=== PATIENT | female | born 1990 | race Caucasian/White ===

== ENCOUNTER → 2021-08-01 | Outpatient (CLI) | payer BC | LOC: DIA.ED 08:18 | DX: O24.419 Gestational diabetes mellitus in pregnancy, unspecified control (principal) | CPT/HCPCS: G0108 ==

== ENCOUNTER → 2021-09-10 | Outpatient (CLI) | payer BC | LOC: DIA.ED 02:06 | DX: O24.419 Gestational diabetes mellitus in pregnancy, unspecified control (principal) | CPT/HCPCS: G0108 ==

== ENCOUNTER 2021-09-24 09:09 | Inpatient (IN) | payer BC ==
[~2021-09-24] VITALS: Ht 167.6 cm; Wt 93.6 kg
[2021-09-24] VITALS (37 sets, daily range): BP systolic 99–131; BP diastolic 49–77; PULSE 58–107; TEMP 98–98.5
--- NOTE | 2021-09-24 09:15 | NUR ---
0915-G1L0 39.[address] Bonilla's to LDR 2 via wheelchair. Patient breathing through contraction upon arrival to unit. Easily able to get up to bathroom and change into gown. Asssited to bed and placed on EFM. Assessment complete. Patient reports contractions since 0200 that are getting closer together and more painful. Denies leaking of fluid or vaginal bleeding. SVE by KIESHA Mckeon /-2. 0931-Dr. Lopez updated on patient and orders to labor check patient obtained.
--- NOTE | 2021-09-24 11:11 | NUR ---
1018-SVE by LindaRN no change in the last hour. Updated Dr. Lopez see MD notification. 1022-Patient off EFM to ambulate.
--- NOTE | 2021-09-24 12:00 | NUR ---
1200-50mg PO benadryl given per MD orders, See EMAR 1215-INT to Right hand per therapeutic rest protocol and MD orders. 1238-15mg Morphine IM given in right buttockk per MD orders, see EMAR.
--- NOTE | 2021-09-24 17:35 | NUR ---
1734-Patient awake, SVE by Max Dumont,RN /-2 buldging bag. 1739-Dr. Lopez updated, orders to admit patient recieved. IVF bolus started. Last snowden. AMOR Clancy notified. Consents reviewed and signed.
--- NOTE | 2021-09-24 18:10 | NUR ---
181-Patient sitting upright for epidural placement. AMOR Clancy to patient room. 1817-SS administered by AMOR Clancy. Patient tolerated procedure well. Repositioned WL. Kanchan RN to patient room shift report complete at bedside.
[2021-09-24 18:20] LABS: BASO # 0.1 K/mm3 (0.0-0.2); BASO % 0.4 % (0.0-2.0); EOS % 0.1 % (0.0-4.0); GRAN # 11.7 K/mm3 (1.4-6.5); GRAN % 86.1 % (42.2-75.2); HEMATOCRIT 38.3 % (37.0-47.0); HEMOGLOBIN 12.7 g/dl (12.5-16.0); LYMPH # 1.1 K/mm3 (1.2-3.4); MEAN CELL VOLUME 86 fl (80.0-100.0); MEAN CORPUSCULAR HEMOGLOBIN 29 pg (27-31); MEAN CORPUSCULAR HGB CONC 33 g/dl (33.0-37.0); MEAN PLATELET VOLUME 12.6 fl (7.4-10.4); MONO # 0.6 K/mm3 (0.1-0.6); MONO % 4.7 % (1.7-9.3); PLATELET COUNT 250 K/mm3 (130-400); RED BLOOD COUNT 4.45 M/mm3 (4.10-5.30); REDCELL DISTRIBUTION WIDTH-CV 13.9 % (11.5-14.5)
--- NOTE | 2021-09-24 18:50 | NUR ---
Dr. Lopez at bedside. Artificial rupture of membranes at this time. Small amount of lightly bloodstained fluid out. SVE per Dr. Lopez. Fontaine catheter placed at this time to dependent drainage. Clear, yellow urine out. Secured to leg with statlock. Pt positioned to left lateral with pillow support. Plan of care reviewed with patient and spouse. Call light within reach.
[2021-09-25] VITALS (44 sets, daily range): BP systolic 90–142; BP diastolic 50–87; PULSE 63–108; TEMP 98.3–99
--- NOTE | 2021-09-25 03:50 | NUR ---
Pt checking blood sugar with own glucometer. BS 82.
--- NOTE | 2021-09-25 04:45 | NUR ---
SVE complete/0. Pushing techniques reviewed with patient, verbalized understanding. Pt positioned in footplates. Initial push at 0455. 0620 - Bedside shift report with Ivania Blanton RN.
--- NOTE | 2021-09-25 05:30 | NUR ---
SPOT CHECK ACCUCHECK PER HOME DEVICE AT THIS TIME, BLOOD SUGAR:83
--- NOTE | 2021-09-25 08:28 | NUR ---
0630: PT PUSHING SINCE 0455. BEDSIDE REPORT FROM SHAYLEE POP AT THIS TIME. THIS NURSE ASSUMES CARE AND CONTINUES COACHING PT THROUGH PUSHING EFFORTS. 0828: OF VIABLE MALE PER . PLACED ON MATERNAL ABDOMEN, CARE OF ASSUMED BY KIESHA DENNY. CORD CLAMPED X2 AND CUT BY PER PARENT REQUEST. 0835: OF PLACENTA PER AT THIS TIME. PITOCIN INFUSING PER PROTOCOL. MODERATE LOCHIA WITH CLOTS NOTED. FUNDAL MASSAGE BY THIS RN PER VERBAL INSTRUCTION PER . VORB FOR IM METHERGINE AT THIS TIME. 0843: IM METHERGIN TO LEFT ANTEROLATERAL THIGH. 0845: REPAIR OF THIRD DEGREE PERINEAL LACERATION AT THIS TIME PER . MODERATE LOCHIA CONTINUES, VORB FOR 800MCG RECTAL CYTOTEC TO BE ADMINISTERED BY FOLLOWING REPAIR. PT'S VITAL SIGNS STABLE AT THIS TIME. EBL 800CC PER FOLLOWING PERINEAL LACERATION REPAIR. BLEEDING CONTROLLED AT THIS TIME. WILL MONITOR CLOSELY. 0850: PT'S VITAL SIGNS STABLE, LOCHIA SCANT, NO CLOTS NOTED. FUNDUS FIRM AT UMBILICUS. WILL CONTINUE PP CARES PER PROTOCOL.
[2021-09-26 02:30] VITALS: BP 113/56; PULSE 80; TEMP 98.1
[2021-09-26 07:25] VITALS: BP 109/58; PULSE 82; TEMP 98
--- NOTE | 2021-09-26 10:21 | NUR ---
Initial visit attempt; Family resting, Assistant Women'S Basketball Coach left card offering congratulations and God's blessings for the of their son and information regarding the availability of spiritual care at [facility].
[2021-09-26 16:10] VITALS: BP 115/64; PULSE 85; TEMP 98
[2021-09-26 20:10] VITALS: BP 99/57; PULSE 66; TEMP 98.1
[2021-09-26 23:00] VITALS: BP 124/67; PULSE 94; TEMP 97.9
[2021-09-27 06:45] VITALS: BP 116/67; PULSE 65; TEMP 97.5
[2021-09-27] MEDS ORDERED: IBU800 M1 PO (08:23)
--- NOTE | 2021-09-27 11:04 | NUR ---
DISCHARGE TEACHING COMPLETED. EDUCATED ON FOLLOW UP APPOINTMENT AND PRESCRIPTION. QUESTIONS INVITED AND ANSWERED.
== END 2021-09-27 11:20 | disposition home or self-care (01) | DRG 768 ==
LOC: LDRO 09:09 → LDR 17:45 → OB 09-25 11:30
PROVIDERS: Obstetrics & Gynecology; ADMIT Student in an Organized Health Care Education/Training Program
PROC: 10E0XZZ Delivery of Products of Conception, External Approach (ICD-10-PCS; principal; 2021-09-24)
PROC: 0DQR0ZZ Repair Anal Sphincter, Open Approach (ICD-10-PCS; 2021-09-24)
DX: O24.420 Gestational diabetes mellitus in childbirth, diet controlled (principal); Z37.0 Single live birth; O99.354 Diseases of the nervous system complicating childbirth; O70.20 Third degree perineal laceration during delivery, unspecified; O72.1 Other immediate postpartum hemorrhage; G43.909 Migraine, unspecified, not intractable, without status migrainosus; O99.62 Diseases of the digestive system complicating childbirth; K21.9 Gastro-esophageal reflux disease without esophagitis; O75.81 Maternal exhaustion complicating labor and delivery; O99.214 Obesity complicating childbirth; Z3A.39 39 weeks gestation of pregnancy
CPT/HCPCS: J2210; J2270; J2400; J2795; J7120

== ENCOUNTER 2023-09-11 06:10 | Observation (INO) | payer OTHER ==
[2023-09-11] VITALS (32 sets, daily range): BP systolic 81–135; BP diastolic 41–81; PULSE 56–94; TEMP 97.7–97.9
[~2023-09-11] VITALS: Ht 167.6 cm; Wt 106.4 kg
[~2023-09-11 06:10] MED LIST: IBU800 M1 PO; PRENATAL; PRILOSEC 20MG20 MG PO; [UNRECOGNIZED DRUG - OTHER] PO
--- NOTE | 2023-09-11 06:20 | NUR ---
0620PT AMBULATORY TO UNIT WITH SPOUSE FOR SCHEDULED INDUCTION. PT CHANGED INTO CLEAN GOWN. PT COMFORTABLE IN BED. 0625THIS RN AT BEDSIDE TO PLACE TOCO AND EFM. EFM TRACING CAT I. PT VITAL SIGNS STABLE. 0635PT STATES SHE FELT LOTS OF POSITIVE MOVEMENT DURING THE NIGHT. PT STATES FEELING THE OCCASIONAL TIGHTENING IN HER BELLY, BUT NOT REGUALR PATTERN OR ANYTHING. PT DENIES LEAKING OF FLUID AND DENIES VAGINAL BLEEDING. 0640THIS RN DISCUSSES POC WITH PT. PT VERBALIZES UNDERSTANDING, AND AGREEMENT. PT STATES SHE HAD AN OB APPOINTMENT YESTERDAY WITH DR. ROJAS. PT STATES THAT DR ROJAS TOLD THE PT TO TELL THE STAFF THAT SHE DOES NOT NEED AN SVE TO START PITOCIN. PT WAS DILATED TO 1 CM YESTERDAY, AND IT WAS A DIFFICULT CHECK. 0650IV STARTED AT THIS TIME. 0715FIRST BAG OF IVF STARTED. PITOCIN STARTED AT 2 MU AT THIS TIME.
[2023-09-11] MEDS ORDERED: LR & Oxytocin 500 ML IV SCH (07:00)
[2023-09-11] MEDS ORDERED: LR 1,000 ML IV SCH (07:00)
[2023-09-11] MEDS ORDERED: FERROUS SU325 MG/TAB PO (07:37)
[2023-09-11] MEDS ORDERED: CLARITIN 1010 MG/TAB PO (07:38)
[2023-09-11 07:42] LABS: BASO % 0.4 % (0.0-2.0); EOS # 0.1 K/mm3 (0.0-0.7); GRAN # 7.6 K/mm3 (1.4-6.5); GRAN % 74.6 % (42.2-75.2); HEMOGLOBIN 11.4 g/dl (12.5-16.0); LYMPH # 1.7 K/mm3 (1.2-3.4); LYMPH % 16.3 % (20.0-51.0); MEAN CELL VOLUME 86 fl (80.0-100.0); MEAN CORPUSCULAR HEMOGLOBIN 28 pg (27-31); MEAN CORPUSCULAR HGB CONC 33 g/dl (33.0-37.0); MONO # 0.7 K/mm3 (0.1-0.6); PLATELET COUNT 303 K/mm3 (130-400); RED BLOOD COUNT 4.07 M/mm3 (4.10-5.30); REDCELL DISTRIBUTION WIDTH-CV 15.3 % (11.5-14.5)
[2023-09-11 07:47] LABS: HEMATOCRIT 35.1 % (37.0-47.0)
[2023-09-11] MEDS ORDERED: Acetaminophen 500 MG TAB PO PRN (09:00)
--- NOTE | 2023-09-11 09:30 | NUR ---
DR ROJAS ON UNIT. DR ROJAS TELLS THIS NURSE THAT THE PT CAN HAVE AN EPIDURAL WHENEVER. DR ROJAS STATES HE WILL BE BACK AROUND LUNCH TIME AND WILL BREAK WATER THEN IF PT HAS AN EPIDURAL. DR ROJAS STATES THAT THE SVE YESTERDAY IN THE OFFICE WAS PRETTY ROUGH, AND SHE WAS 1 CM DILATED, AND CONFIRMED THAT HE WAS OKAY THAT I DID NOT CHECK HER THIS MORNING AND TO CONTINUE WITH CURRENT MANAGEMENT OF INDUCTION. DR ROJAS GAVE VERBAL ORDER TO THIS RN TO GO UP TO 30 MU OF PITOCIN IF THE PATIENTS NEEDS IT.
--- NOTE | 2023-09-11 13:00 | NUR ---
1300-1330PT UP AND WALKING AROUND THE HALLS. WIRELESS TOCO AND EFM ARE PLACED. PT IS ACCOMPANIED BY RN. EFM DIFFICULT TO TRACE WHILE PT IS WALKING. PT AND RN STOP FOR A FEW SECONDS TO CHECK BABY ON THE MONITOR AFTER EACH LAP AROUND THE UNIT. 1330PT BACK IN BED AND PLACED ON BEDSIDE TOCO AND EFM. EFM TRACING CAT I. PT COMFORTABLE IN BED. PT VITAL SIGNS STABLE.
--- NOTE | 2023-09-11 13:55 | NUR ---
THIS RN AND GALO POP ENTER PT'S ROOM AND DICUSS THE PT'S OPTIONS. THE PT IS ALLOWED TO ASK QUESTIONS. GALO POP ANSWERS ALL QUESTIONS. PT VERBALIZES UNDERSTANDING.
--- NOTE | 2023-09-11 16:00 | NUR ---
1600-1615PT WALKING THE HALLS WITH THE WIRELESS TOCO/EFM. EFM DIFFICULT TO TRACE WHILE PT IS WALKING. THIS RN CHECKS IN AND GETS BABY ON MONITOR BEFORE PT CONTINUES. 1615PT RETURNS TO ROOM AND IS SITTING ON THE EDGE OF THE BED. EFM TRACING CAT I. PT VITAL SIGNS STABLE.
--- NOTE | 2023-09-11 17:40 | NUR ---
PITOCIN STOPPED AT THIS TIME BY THIS RN. TORB ORDER TO DISCONTINUE PITOCIN PER DR ROJAS.
--- NOTE | 2023-09-11 17:55 | NUR ---
DR ROJAS AT BEDSIDE TO DISCUSS POC WITH PT. DR ROJAS GIVES PT OPTIONS OF HOW TO CONTINUE. EITHER TRY CYTOTEC TONIGHT, GET AN EPIDURAL AND BREAK WATER, DO A PIT BREAK FOR FOUR HOURS, OR IF THE PT WANTS TO GO HOME AND COME BACK NEXT WEEK. PT STATES SHE DOES NOT WANT A , AND WANTS TO DO THE OPTION THAT WILL LEAST LEAD TO A . DR ROJAS STATES IF SHE STAYS AND TRIES ANY OF THE OPTIONS, THERE IS A HIGH RISK FOR . DR ROJAS STATES THE LOWEST RISK FOR A RIGHT NOW IS IF PT GOES HOME, AND ATTEMPTS INDUCTION AGAIN EARLY NEXT WEEK. PT STATES SHE WANTS TO GO HOME AND COME BACK NEXT WEEK. DR ROJAS AND PT AGREE ON POC. DR ROJAS LEAVES ROOM TO GO LOOK AT INDUCTION BOOK, AND GET HER SCHEDULED. PT REMAINS ON MONITORS, TO CONTINUE TO BE MONITORED WHILE PITOCIN LEAVES HER SYSTEM.
--- NOTE | 2023-09-11 18:43 | NUR ---
PATIENT EDUCATED ON SIGNS OF LABOR, WHEN TO RETURN TO HOSPITAL, RETURNING TO HOSPTIAL FridaySEPTEMBER 13 FOR SCHEDULED EVENING INDUCTION. QUESTIONS INVITED AND ANSWERED. PATIENT AND SPOUSE AMBULATORY OFF UNIT.
== END 2023-09-11 18:45 | disposition home or self-care (01) ==
LOC: LDR 06:10 → OB 06:10 → LDR 06:11 → OB 07:30 → EDSTATUS 09:31 → OB 15:41 → LDR 18:45
PROVIDERS: ADMIT Obstetrics & Gynecology
DX: O61.0 Failed medical induction of labor (principal); Z3A.39 39 weeks gestation of pregnancy
CPT/HCPCS: J2590; J7120

== ENCOUNTER 2023-09-14 13:51 | Inpatient (IN) | payer OTHER ==
[~2023-09-14] VITALS: Wt 110.0 kg
[~2023-09-14 13:51] MED LIST changes: +CLARITIN 1010 MG/TAB PO; +FERROUS SU325 MG/TAB PO
[2023-09-14 20:30] VITALS: BP 127/74; PULSE 79; TEMP 97.9
[2023-09-14] MEDS ORDERED: Terbutaline 1 MG/ML 1 ML AMP SQ PRN (20:30)
[2023-09-14] MEDS ORDERED: LR & Oxytocin 500 ML IV SCH (20:30)
[2023-09-14] MEDS ORDERED: LR 1,000 ML IV SCH (20:30)
[2023-09-14 21:00] VITALS: BP 119/70; PULSE 78; TEMP 97.9
[2023-09-14 21:10] LABS: BASO % 0.4 % (0.0-2.0); EOS % 0.4 % (0.0-4.0); GRAN # 6.6 K/mm3 (1.4-6.5); GRAN % 70.6 % (42.2-75.2); HEMOGLOBIN 11.5 g/dl (12.5-16.0); LYMPH # 1.7 K/mm3 (1.2-3.4); LYMPH % 18.4 % (20.0-51.0); MEAN CELL VOLUME 85 fl (80.0-100.0); MEAN CORPUSCULAR HEMOGLOBIN 28 pg (27-31); MEAN CORPUSCULAR HGB CONC 33 g/dl (33.0-37.0); MEAN PLATELET VOLUME 10.9 fl (7.4-10.4); MONO # 0.9 K/mm3 (0.1-0.6); MONO % 9.3 % (1.7-9.3); PLATELET COUNT 282 K/mm3 (130-400); RED BLOOD COUNT 4.13 M/mm3 (4.10-5.30); REDCELL DISTRIBUTION WIDTH-CV 15.4 % (11.5-14.5)
[2023-09-14] MEDS ORDERED: miSOPROStol 25 MCG (1/4th of 100 MCG) TAB VG SCH (21:15)
[2023-09-15] VITALS (31 sets, daily range): BP systolic 89–146; BP diastolic 43–85; PULSE 53–85; TEMP 97.8–98.4
[2023-09-15] MEDS ORDERED: LR & Oxytocin 500 ML IV SCH (05:00)
--- NOTE | 2023-09-15 05:30 | NUR ---
PT CALLED OUT TO REQUEST AN EPIDURAL. SHE STATES THE CTX'S ARE GETTING STRONGER AND CLOSER TOGETHER. THE CTX'S ARE HURTING IN THE BACK JUST LIKE HER FIRST LABOR DID. ALAN CHINCHILLA NOTIFIED FOR EPIDURAL.
[2023-09-15] MEDS ORDERED: diphenhydrAMINE 50 MG/ML 1 ML VIAL IV PRN (06:30)
[2023-09-15] MEDS ORDERED: diphenhydrAMINE 25 MG CAP PO PRN (06:30)
[2023-09-15] MEDS ORDERED: Naloxone 0.4 MG/ML VIAL IV PRN ×2 (06:30→11:30)
[2023-09-15] MEDS ORDERED: ePHEDrine 50 MG/10 ML VIAL IV PRN (06:30)
[2023-09-15] MEDS ORDERED: Ondansetron 4 MG/2 ML VIAL IV PRN (06:30)
[2023-09-15] MEDS ORDERED: ROPivacaine PF 0.2% 200 ML IV ONE (06:35)
--- NOTE | 2023-09-15 07:27 | NUR ---
PT SITTING ON SIDE OF BED FOR EPIDURAL PLACEMENT
--- NOTE | 2023-09-15 07:35 | NUR ---
MANAGER VAN AND RN BEDSIDE DURING EPIDURAL PLACEMENT, PT TOLERATED WELL
--- NOTE | 2023-09-15 10:04 | NUR ---
BOB ARORA UPDATED ON SVE COMPLETE, PRACTICE PUSH. STATES HE WILL BE BEDSIDE IN 15 MIN FOR DELIVERY
[2023-09-15] MEDS ORDERED: Magnes Hydrox (MOM) 80 MG/ML 30 ML CUP PO PRN (10:15)
[2023-09-15] MEDS ORDERED: Loratadine 10 MG TAB PO PRN (10:15)
[2023-09-15] MEDS ORDERED: Mag/Al Hydrox/Simeth Susp 30 ML CUP PO PRN (11:30)
[2023-09-15] MEDS ORDERED: Measles/Mumps/Rubella Virus Vaccine Live w Diluent 0.5 ML VIAL SQ SCH (11:30)
[2023-09-15] MEDS ORDERED: oxyCODONE 5 MG TAB PO PRN (11:30)
[2023-09-15] MEDS ORDERED: Phenylephrine/Mineral Oil/Petrolatum 57 GM TUBE RC PRN (11:30)
[2023-09-15] MEDS ORDERED: Witch Hazel 50% Pads Bulk TUB TP PRN (11:30)
[2023-09-15] MEDS ORDERED: Ibuprofen 800 MG TAB PO SCH (12:00)
[2023-09-15] MEDS ORDERED: Acetaminophen 500 MG TAB PO SCH (12:00)
[2023-09-15] MEDS ORDERED: Sennosides/Docusate 8.6-50 MG TAB PO SCH (17:00)
--- NOTE | 2023-09-15 20:00 | NUR ---
PARENTS UPDATED ON BABY'S CONDITION AND PLAN OF CARE. QUESTIONS ENCOURAGED AND ANSWERED
[2023-09-15] MEDS ORDERED: traZODone 50 MG TAB PO PRN (21:00)
--- NOTE | 2023-09-15 23:30 | NUR ---
PT WALKED TO [facility] TO DROP OFF PUMPED COLOSTRUM- UPDATED ON BABY
[2023-09-16 01:45] VITALS: BP 124/77; PULSE 67; TEMP 98.9
--- NOTE | 2023-09-16 02:00 | NUR ---
MOM TO [facility] WITH PUMPED BRST MILK- IS UPDATED ON BABY'S PROGRESS
--- NOTE | 2023-09-16 05:30 | NUR ---
PT IN TO [facility]- HOLDS BABY AND GETS UPDATE ON BABY.
[2023-09-16 08:07] VITALS: BP 119/73; PULSE 77; TEMP 97.9
[2023-09-16] MEDS ORDERED: MOTRIN 800800 MG/TAB PO (09:13)
--- NOTE | 2023-09-16 10:40 | NUR ---
Initial visit; Parents thanked Family Medicine Physician Assistant for offering congratulations and God's blessings for the of theor son. Family Medicine Physician Assistant thanked family for choosing our hospital.
[2023-09-16 11:49] VITALS: BP 118/73; PULSE 72; TEMP 98
[2023-09-16 17:43] VITALS: BP 122/68; PULSE 76; TEMP 97.9
[2023-09-16 19:31] VITALS: BP 131/59; PULSE 75; TEMP 98.7
[2023-09-17 07:39] VITALS: BP 126/67; PULSE 81; TEMP 98
== END 2023-09-17 15:00 | disposition home or self-care (01) | DRG 560 ==
LOC: OB 13:51 → LDR 19:54 → OB 19:54
PROVIDERS: ADMIT Obstetrics & Gynecology
PROC: 10E0XZZ Delivery of Products of Conception, External Approach (ICD-10-PCS; principal; 2023-09-15)
PROC: 0KQM0ZZ Repair Perineum Muscle, Open Approach (ICD-10-PCS; 2023-09-15)
PROC: 3E0P7VZ Introduction of Hormone into Female Reproductive, Via Natural or Artificial Opening (ICD-10-PCS; 2023-09-15)
PROC: 3E033VJ Introduction of Other Hormone into Peripheral Vein, Percutaneous Approach (ICD-10-PCS; 2023-09-15)
DX: O48.0 Post-term pregnancy (principal); Z37.0 Single live birth; O70.1 Second degree perineal laceration during delivery; Z3A.40 40 weeks gestation of pregnancy
CPT/HCPCS: J2590; J2795; J7120